=== PATIENT | male | born 1965 | race Hispanic/Latino ===

== ENCOUNTER 2017-11-05 18:03 | Observation (INO) | payer BC ==
[~2017-11-05] VITALS: Ht 177.8 cm; Wt 146.8 kg
[2017-11-05 18:42] LABS: BASOPHILS % (AUTO) 0.8 % (0.0-5.0); EOSINOPHILS % (AUTO) 6.2 % (0.0-8.0); HEMATOCRIT 42.7 % (42-54); LYMPHOCYTES % (AUTO) 10.2 % (21.0-51.0); MEAN CORPUSCULAR HEMOGLOBIN 30.8 pg (27.0-33.0); MEAN CORPUSCULAR HGB CONC 34.2 g/dL (32.0-36.0); MEAN CORPUSCULAR VOLUME 90.2 fL (79-99); MONOCYTES % (AUTO) 11.9 % (3.0-13.0); NEUTROPHILS % (AUTO) 70.9 % (40.0-77.0); PLATELET COUNT (AUTO) 226 K/uL (130-400); RED BLOOD CELL COUNT(AUTO) 4.73 MIL/uL (4.50-6.20); RED CELL DISTRIBUTION WIDTH 13.6 % (11.0-15.5)
[2017-11-05 18:59] LABS: INR 0.91 (0.85-1.15); PROTHROMBIN TIME 9.6 SEC (9.6-11.6)
[2017-11-05 19:01] LABS: CARBON DIOXIDE 29 mmol/L (21-32); CHLORIDE 104 mmol/L (101-111); CREATININE 1.1 mg/dL (0.5-1.5); GLOMERULAR FILTR. RATE CALC 75 mL/min (>60); GLUCOSE,RANDOM 141 mg/dL (70-105); POTASSIUM 4.1 mmol/L (3.5-5.1); SODIUM SERUM 141 mmol/L (136-145); UREA NITROGEN, BLOOD 19 mg/dL (7-18)
[2017-11-05 19:06] LABS: APPEARANCE,URINE Clear (CLEAR); BILIRUBIN,URINE Negative (NEGATIVE); COLOR,URINE Yellow (YELLOW); GLUCOSE, URINE (UA) Negative (NEGATIVE); KETONES,URINE Negative (NEGATIVE); LEUKOCYTE ESTERASE ,URINE Negative (NEGATIVE); NITRATE,URINE Negative (NEGATIVE); OCCULT BLOOD,URINE Negative (NEGATIVE); PROTEIN,URINE Negative (NEGATIVE)
[2017-11-05 19:16] LABS: ALANINE AMINOTRANSFERASE 138 U/L (12-78); ALBUMIN 3.2 g/dL (3.5-5.0); ASPARTATE AMINOTRANSFERASE 35 U/L (10-37); BILIRUBIN,DIRECT 0.1 mg/dL (0.0-0.3); BILIRUBIN,TOTAL 0.3 mg/dL (0.2-1.0); CREATINE KINASE MB < 0.5 ng/mL (0.5-3.6); CREATINE KINASE, TOTAL 64 U/L (21-232); TOTAL PROTEIN, SERUM 7.6 g/dL (6.0-8.3)
[2017-11-05 19:28] LABS: B-TYPE NATRIURETIC PEPTIDE 15 pg/mL (0-100)
[2017-11-05] MEDS ORDERED: TETANUS/DIPHTHERIA TOXOID [ADULT] 0.5 ML VIAL IM ONE (20:05)
[2017-11-06] MEDS ORDERED: POTASSIUM CHLORIDE 20 MEQ ERTAB PO PRN (00:15)
[2017-11-06] MEDS ORDERED: CEFTRIAXONE 1GM/D5W 50ML 50 ML IV SCH (00:15)
[2017-11-06] MEDS ORDERED: POTASSIUM CHLORIDE 10% ELIXIR 20 MEQ/15 ML UDCUP PO PRN (00:15)
[2017-11-06] MEDS ORDERED: LIDOCAINE HCL-MPF 1% 2ML VIAL IVP PRN (00:15)
[2017-11-06] MEDS ORDERED: POTASSIUM CHLORIDE 20MEQ/100ML 100 ML IV PRN (00:15)
[2017-11-06] MEDS ORDERED: ONDANSETRON HCL 4 MG/2 ML VIAL IV PRN (00:15)
[2017-11-06] MEDS ORDERED: VANCOMYCIN 1GM+NS 250ML 250 ML IV SCH (00:15)
[2017-11-06] MEDS ORDERED: MORPHINE SULFATE 2 MG/ML 1ML SYG IV PRN (00:15)
[2017-11-06] MEDS ORDERED: HYDRALAZINE HCL 20 MG/ML VIAL IV PRN (00:15)
[2017-11-06] MEDS ORDERED: CEFTRIAXONE SODIUM 1 GM ONE (00:44)
[2017-11-06] MEDS ORDERED: MORPHINE SULFATE 2 MG/ML 1ML SYG ONE (00:44)
[2017-11-06] MEDS ORDERED: VANCOMYCIN PROTOCOL PER PHARMACY IV SCH (02:00)
[2017-11-06] MEDS: CEFTRIAXONE SODIUM 1 GM IVP SCH (02:00)
[2017-11-06 03:40] VITALS: BP 147/95
[2017-11-06 05:20] LABS: ALANINE AMINOTRANSFERASE 124 U/L (12-78); ALBUMIN 2.9 g/dL (3.5-5.0); ASPARTATE AMINOTRANSFERASE 30 U/L (10-37); BILIRUBIN,TOTAL 0.4 mg/dL (0.2-1.0); CARBON DIOXIDE 29 mmol/L (21-32); CHLORIDE 102 mmol/L (101-111); CREATINE KINASE, TOTAL 43 U/L (21-232); GLOMERULAR FILTR. RATE CALC 84 mL/min (>60); GLUCOSE,RANDOM 97 mg/dL (70-105); SODIUM SERUM 140 mmol/L (136-145); TOTAL PROTEIN, SERUM 7.1 g/dL (6.0-8.3); TROPONIN I 0.09 ng/mL (0.00-0.06); UREA NITROGEN, BLOOD 15 mg/dL (7-18)
[2017-11-06 05:52] LABS: CREATINE KINASE MB < 0.5 ng/mL (0.5-3.6); MYOGLOBIN 40 ng/mL (10-92)
[2017-11-06] MEDS ORDERED: COMPOUND IV REFRIGERATED 1 EACH IVSOLN MISC PRN (06:45)
[2017-11-06 07:00] VITALS: BP 145/93
[2017-11-06] MEDS: PANTOPRAZOLE SODIUM 40 MG TABLET.DR PO SCH (09:03)
[2017-11-06] MEDS: LISINOPRIL 10 MG TABLET PO SCH (09:03)
[2017-11-06] MEDS: VANCOMYCIN 2 GM in SODIUM CHLORIDE 0.9% 500ML 500 ML IV SCH ×2 (09:15→20:47)
[2017-11-06] MEDS: CLOTRIMAZOLE/BETAMETHASONE DIP 45 GM CREAM.GM. TP SCH ×3 (09:16→20:49)
[2017-11-06] MEDS ORDERED: AMOX-429 PO (09:59)
[2017-11-06 11:00] VITALS: BP 155/104
[2017-11-06 15:55] VITALS: BP 145/88
[2017-11-06 19:15] VITALS: BP 133/71
[2017-11-06] MEDS: FLU VACC QS2017-18 36MOS UP/PF 60 MCG/0.5 ML ML IM SCH (20:48)
[2017-11-07 00:10] VITALS: BP 150/90
[2017-11-07] MEDS: CEFTRIAXONE SODIUM 1 GM IVP SCH (03:04)
[2017-11-07 04:25] VITALS: BP 142/87
[2017-11-07] MEDS: FLU VACC QS2017-18 36MOS UP/PF 60 MCG/0.5 ML ML IM SCH (07:37)
[2017-11-07 08:00] VITALS: BP 149/94
[2017-11-07] MEDS: VANCOMYCIN 2 GM in SODIUM CHLORIDE 0.9% 500ML 500 ML IV SCH (09:00)
[2017-11-07] MEDS: LISINOPRIL 10 MG TABLET PO SCH (09:51)
[2017-11-07] MEDS: PANTOPRAZOLE SODIUM 40 MG TABLET.DR PO SCH (09:51)
[2017-11-07] MEDS: CLOTRIMAZOLE/BETAMETHASONE DIP 45 GM CREAM.GM. TP SCH (09:52)
== END 2017-11-07 13:00 | disposition home or self-care (01) ==
LOC: EDH 18:03 → EDHIP 23:00 → MERGE 23:00 → 3CH 11-06 00:10
PROVIDERS: ADMIT Internal Medicine; ATTEND Internal Medicine
DX: L03.115 Cellulitis of right lower limb (principal); L03.116 Cellulitis of left lower limb; R07.89 Other chest pain; E66.01 Morbid (severe) obesity due to excess calories; B35.3 Tinea pedis; R59.9 Enlarged lymph nodes, unspecified; Z87.891 Personal history of nicotine dependence; Z23 Encounter for immunization
CPT/HCPCS: 36415 ×2; 71046; 76705; 80048; 80053; 80076; 81003; 82550 ×2; 82553 ×2; 83874; 83880; 84484 ×3; 85025; 85610; 85730; 90714; 93005 ×3; 93306; 93970; 96365; 96366; 96375; 99285; A4218; G0008; G0378 ×38; J0696 ×3; J3370 ×3; J7040 ×2; Q2038